=== PATIENT | male | born 1975 | race Caucasian/White ===

== ENCOUNTER 2021-09-13 10:42 | Emergency (ER) | payer OTHER ==
[2021-09-13 12:32] LABS: BASOPHIL 0.6 % (0-2); EOSINOPHIL 5.8 % (0-5); HCT 41.7 % (42.0-52.0); HGB 14.8 g/dl (13.2-18.0); LYMPHOCYTE 33.8 % (15-48); MCH 32.4 pg (25.0-31.0); MCHC 35.5 g/dL (32.0-36.0); MCV 91.2 fL (78.0-100.0); MPV 8.9 fL (6.0-9.5); NEUTROPHIL 52.6 % (41-80); NRBC 0; PLT 188 K/uL (150-400); RBC 4.57 M/uL (4.70-6.00); RDW 12.5 % (11.5-14.0); WBC 6.6 K/uL (4.0-10.5)
[2021-09-13 12:49] LABS: BILIRUBIN - TOTAL 0.3 mg/dL (0.2-1.0); BUN/CREAT RATIO (CALC) 15.8 RATIO; CREATININE 1.14 mg/dL (0.67-1.17); GLOBULIN (CALCULATION) 3.1 g/dL; POTASSIUM 3.3 mmol/L (3.5-5.1); TOTAL PROTEIN 7.1 g/dL (6.4-8.2)
[2021-09-13] MEDS ORDERED: PRILOSEC20 MG PO (13:41)
== END 2021-09-13 14:34 | disposition home or self-care (01) ==
LOC: FER 10:42
PROVIDERS: Emergency Medicine
DX: K21.9 Gastro-esophageal reflux disease without esophagitis (principal); R07.89 Other chest pain; F17.200 Nicotine dependence, unspecified, uncomplicated
CPT/HCPCS: 36415; 71046; 80053; 82553; 84484; 85025; 93005